=== PATIENT | female | born 1960 | race Caucasian/White ===

== ENCOUNTER 2020-09-25 13:25 | Inpatient (IN) | payer MEDICARE, OTHER ==
[~2020-09-25] VITALS: Ht 160 cm; Wt 65.8 kg
[~2020-09-25 13:25] MED LIST: ALBU2.5V7 IH; BUDE10.2 IH; ESTR0.5T PO; FENO160T4 PO; LANS15TA5 PO; LORA10CA PO; TIOT18CA4 IH
[2020-09-25 14:11] LABS: BASOPHILS # (AUTO) 0.1 K/uL (0.0-8.0); BASOPHILS % (AUTO) 0.8 % (0.0-2.0); EOSINOPHILS % (AUTO) 0.5 % (0.0-7.0); HEMATOCRIT 31.9 % (31.2-41.9); HEMOGLOBIN 10.7 g/dL (10.9-14.3); LYMPHOCYTES # (AUTO) 1.2 K/uL (20.0-40.0); LYMPHOCYTES % (AUTO) 17.6 % (20.5-51.5); MEAN CORPUSCULAR HEMOGLOBIN 30.1 uug (24.7-32.8); MEAN CORPUSCULAR HGB CONC 33 g/dL (32.3-35.6); MEAN CORPUSCULAR VOLUME 90.2 fL (75.5-95.3); MONOCYTES # (AUTO) 0.4 K/uL (2.0-10.0); MONOCYTES % (AUTO) 6.1 % (0.0-11.0); NEUTROPHILS # (AUTO) 5.3 K/uL (1.8-8.9); PLATELET COUNT (AUTO) 509 K/uL (179-408); RED BLOOD CELL COUNT(AUTO) 3.54 MIL/uL (3.63-4.92)
[2020-09-25 14:17] LABS: ETHANOL < 3 MG/DL (0-0)
[2020-09-25 14:21] LABS: CARBON DIOXIDE 29 mmol/L (21-32); CHLORIDE 105 mmol/L (98-107); CREATININE 1.3 mg/dL (0.6-1.3); GLUCOSE 97 mg/dL (74-106); POTASSIUM 3.3 mmol/L (3.5-5.1); UREA NITROGEN, BLOOD 21 mg/dL (7-18)
[2020-09-25 14:27] LABS: ACETAMINOPHEN < 2.0 ug/mL (10-30); ALANINE AMINOTRANSFERASE 23 U/L (14-59); ALKALINE PHOSPHATASE 67 U/L (50-136); ASPARTATE AMINOTRANSFERASE 15 U/L (15-37); TOTAL PROTEIN, SERUM 6.5 g/dL (6.4-8.2)
[2020-09-25] MEDS ORDERED: POTASSIUM CHLORIDE 20 MEQ TAB.PRT.SR PO ONE (15:15)
[2020-09-25 15:17] LABS: BILIRUBIN,DIRECT < 0.1 mg/dL (0.0-0.2); BILIRUBIN,TOTAL 0.1 mg/dL (0.2-1.0)
[2020-09-25] MEDS ORDERED: POTASSIUM CHLORIDE 20 MEQ TAB.PRT.SR ONE (15:21)
[2020-09-25] MEDS ORDERED: ONDANSETRON 4 MG/2 ML VIAL IV PRN (16:45)
[2020-09-25] MEDS ORDERED: ALBUTEROL SULFATE 2.5 MG/3 ML NEBU IH PRN (17:45)
[2020-09-25 17:58] VITALS: BP 116/47
[2020-09-25] MEDS ORDERED: ENOXAPARIN SODIUM 40 MG/0.4 ML DISP.SYRIN SQ ONE (18:00)
[2020-09-25] MEDS ORDERED: AZITHROMYCIN 250 MG TABLET PO ONE (18:00)
[2020-09-25] MEDS ORDERED: lexapro (18:20)
[2020-09-25] MEDS ORDERED: wellbutrin (18:20)
[2020-09-25] MEDS ORDERED: [UNRECOGNIZED DRUG - OTHER] (18:20)
[2020-09-25] MEDS ORDERED: vitamin d3 (18:20)
[2020-09-25] MEDS ORDERED: DOCU-141 PO (18:20)
[2020-09-25] MEDS ORDERED: geodon (18:20)
[2020-09-25] MEDS ORDERED: DEXAMETHASONE SOD PHOSPHATE 4 MG INJ IV SCH (19:00)
[2020-09-25] MEDS ORDERED: LORAZEPAM 1 MG TABLET PO PRN (19:00)
[2020-09-25] MEDS ORDERED: DEXAMETHASONE 4 MG TABLET PO SCH (20:00)
[2020-09-25] MEDS ORDERED: ALBUTEROL SULFATE 8 GM HFA.AER.AD IH PRN (20:00)
[2020-09-25 20:03] VITALS: BP 139/61
[2020-09-25] MEDS: ZIPRASIDONE 20 MG CAPSULE PO SCH (20:20)
[2020-09-25] MEDS: ACETAMINOPHEN 325 MG TABLET PO PRN (20:21)
[2020-09-25] MEDS ORDERED: DEXAMETHASONE SOD PHOSPHATE 10 MG INJ IV SCH (20:45)
[2020-09-25] MEDS: DEXAMETHASONE 4 MG TABLET PO SCH (21:58)
[2020-09-25] MEDS: IPRATROPIUM BROMIDE 12.9 GM INHALER INH SCH (23:30)
[2020-09-26 00:10] VITALS: BP 118/50
[2020-09-26] MEDS: IPRATROPIUM BROMIDE 12.9 GM INHALER INH SCH ×6 (04:10→23:45)
[2020-09-26 04:14] VITALS: BP 123/51
[2020-09-26 06:13] LABS: BASOPHILS % (AUTO) 0.4 % (0.0-2.0); HEMATOCRIT 32.3 % (31.2-41.9); HEMOGLOBIN 10.7 g/dL (10.9-14.3); LYMPHOCYTES # (AUTO) 0.6 K/uL (20.0-40.0); LYMPHOCYTES % (AUTO) 8.7 % (20.5-51.5); MEAN CORPUSCULAR HEMOGLOBIN 29.7 uug (24.7-32.8); MEAN CORPUSCULAR HGB CONC 33 g/dL (32.3-35.6); MEAN CORPUSCULAR VOLUME 89.8 fL (75.5-95.3); MONOCYTES # (AUTO) 0.1 K/uL (2.0-10.0); MONOCYTES % (AUTO) 1.7 % (0.0-11.0); NEUTROPHILS # (AUTO) 5.7 K/uL (1.8-8.9); NEUTROPHILS % (AUTO) 89.2 % (38.5-71.5); PLATELET COUNT (AUTO) 518 K/uL (179-408); WHITE BLOOD COUNT (AUTO) 6.4 K/uL (3.8-11.8)
[2020-09-26 06:41] LABS: BILIRUBIN,TOTAL 0.3 mg/dL (0.2-1.0); CREATININE 1.4 mg/dL (0.6-1.3); POTASSIUM 4.4 mmol/L (3.5-5.1); TOTAL PROTEIN, SERUM 6.8 g/dL (6.4-8.2)
[2020-09-26] MEDS: PANTOPRAZOLE SODIUM 40 MG TABLET.DR PO SCH (08:32)
[2020-09-26] MEDS: LORATADINE 10 MG TABLET PO SCH (08:58)
[2020-09-26] MEDS: ZIPRASIDONE 20 MG CAPSULE PO SCH ×3 (08:59→20:55)
[2020-09-26 09:00] VITALS: BP 106/69
[2020-09-26] MEDS ORDERED: ESTRADIOL 1 MG TABLET PO SCH (09:00)
[2020-09-26] MEDS: DEXAMETHASONE 4 MG TABLET PO SCH (09:02)
[2020-09-26] MEDS ORDERED: FLUTICASONE/SALMETEROL 250/50 INHALER INH SCH (09:30)
[2020-09-26] MEDS: ENOXAPARIN SODIUM 40 MG/0.4 ML DISP.SYRIN SQ SCH ×2 (10:00→10:32)
[2020-09-26 10:44] LABS: *BILIRUBIN,URIN NEGATIVE (NEGATIVE); *CLARITY,URINE SLIGHTLY CLOUDY (CLEAR); *COLOR,URINE YELLOW (YELLOW); *KETONES,URINE NEGATIVE (NEGATIVE); *UROBILINOGEN,URINE 0.2 E.U./dl (NORMAL); LEUKOCYTE ESTERASE ,URINE NEGATIVE (NEGATIVE); NITRITE, URINE NEGATIVE (NEGATIVE); UGLUCOSE NEGATIVE (NEGATIVE)
[2020-09-26 10:49] LABS: *BLOOD, URINE TRACE (NEGATIVE)
[2020-09-26 10:58] LABS: *AMPHETAMINE, URINE NEGATIVE (NEGATIVE); *CANNABINOID, URINE NEGATIVE (NEGATIVE); *COCCAINE, URINE NEGATIVE (NEGATIVE); *OPIATE, URINE NEGATIVE (NEGATIVE); *PHENCYCLIDINE SCREEN,URINE NEGATIVE (NEGATIVE)
[2020-09-26] MEDS: FLUTICASONE/VILANTEROL 1 EACH BLST.W.DEV INH SCH (11:26)
[2020-09-26 11:37] LABS: BACTERIA,URINE FEW /HPF (NONE SEEN); SQUAMOUS EPITHELIAL CELL,UR MODERATE /HPF (NONE SEEN); WBC,URINE 0-3 /HPF (0-3)
[2020-09-26] MEDS ORDERED: ESCI20TA PO (11:42)
[2020-09-26] MEDS ORDERED: LORA-258 PO (11:43)
[2020-09-26] MEDS ORDERED: MONT10TA22 PO (11:50)
[2020-09-26] MEDS ORDERED: BUPR300T52 PO (11:50)
[2020-09-26] MEDS ORDERED: OMEP20TA5 PO (11:50)
[2020-09-26] MEDS ORDERED: LACT10SO PO (11:50)
[2020-09-26] MEDS ORDERED: ERGO500040 PO (11:50)
[2020-09-26 12:00] VITALS: BP 117/61
[2020-09-26] MEDS ORDERED: buPROPion XL 150 MG TAB.SR.24H PO SCH (12:39)
[2020-09-26] MEDS ORDERED: Medication Not On Formulary EA (Bupropion Hcl (Wellbutrin Xl) 300 MG) PO SCH (12:45)
[2020-09-26] MEDS ORDERED: Medication Not On Formulary EA (Escitalopram Oxalate (Lexapro) 20 MG) PO SCH (12:45)
[2020-09-26] MEDS ORDERED: Medication Not On Formulary EA (Omeprazole 20 MG) PO SCH (12:45)
[2020-09-26] MEDS ORDERED: ESCITALOPRAM OXALATE 10 MG TABLET PO ONE (13:00)
[2020-09-26 15:26] VITALS: BP 126/62
[2020-09-26] MEDS: DOCUSATE SODIUM 100 MG CAPSULE PO SCH (16:49)
[2020-09-26] MEDS: LORAZEPAM 0.5 MG TABLET PO SCH (16:49)
[2020-09-26] MEDS: MONTELUKAST SODIUM 10 MG TABLET PO SCH (17:01)
[2020-09-26] MEDS ORDERED: DEXAMETHASONE 4 MG TABLET PO SCH (18:00)
[2020-09-26] MEDS ORDERED: AZITHROMYCIN 250 MG TABLET PO SCH (18:00)
[2020-09-26 20:00] VITALS: BP 114/58
[2020-09-26] MEDS ORDERED: ZIPRASIDONE 20 MG CAPSULE PO SCH (21:00)
[2020-09-27 00:31] VITALS: BP 126/63
[2020-09-27 04:00] VITALS: BP 104/56
[2020-09-27] MEDS: IPRATROPIUM BROMIDE 12.9 GM INHALER INH SCH ×6 (04:01→23:42)
[2020-09-27] MEDS: PANTOPRAZOLE SODIUM 40 MG TABLET.DR PO SCH (06:32)
[2020-09-27 08:08] LABS: HEMATOCRIT 30.6 % (31.2-41.9); HEMOGLOBIN 10.4 g/dL (10.9-14.3); LYMPHOCYTES # (AUTO) 1.6 K/uL (20.0-40.0); LYMPHOCYTES % (AUTO) 31.4 % (20.5-51.5); MEAN CORPUSCULAR HEMOGLOBIN 30.4 uug (24.7-32.8); MEAN CORPUSCULAR HGB CONC 34 g/dL (32.3-35.6); MONOCYTES # (AUTO) 0.9 K/uL (2.0-10.0); MONOCYTES % (AUTO) 17.1 % (0.0-11.0); NEUTROPHILS # (AUTO) 2.6 K/uL (1.8-8.9); NEUTROPHILS % (AUTO) 51.5 % (38.5-71.5); PLATELET COUNT (AUTO) 442 K/uL (179-408)
[2020-09-27] MEDS: FLUTICASONE/VILANTEROL 1 EACH BLST.W.DEV INH SCH (08:10)
[2020-09-27] MEDS: LORAZEPAM 0.5 MG TABLET PO SCH ×2 (08:11→16:04)
[2020-09-27] MEDS: ZIPRASIDONE 20 MG CAPSULE PO SCH ×3 (08:11→19:51)
[2020-09-27] MEDS: DOCUSATE SODIUM 100 MG CAPSULE PO SCH ×2 (08:12→16:04)
[2020-09-27] MEDS: LORATADINE 10 MG TABLET PO SCH (08:12)
[2020-09-27] MEDS: DEXAMETHASONE 4 MG TABLET PO SCH (08:13)
[2020-09-27] MEDS: ESTRADIOL 1 MG TABLET PO SCH (08:13)
[2020-09-27] MEDS: ENOXAPARIN SODIUM 40 MG/0.4 ML DISP.SYRIN SQ SCH (08:35)
[2020-09-27 08:47] VITALS: BP 130/79
[2020-09-27] MEDS: ESCITALOPRAM OXALATE 10 MG TABLET PO SCH (10:59)
[2020-09-27 11:16] LABS: ALANINE AMINOTRANSFERASE 30 U/L (14-59); ALKALINE PHOSPHATASE 68 U/L (50-136); ASPARTATE AMINOTRANSFERASE 18 U/L (15-37); CARBON DIOXIDE 24 mmol/L (21-32); CHLORIDE 105 mmol/L (98-107); CREATININE 1.3 mg/dL (0.6-1.3); FERRITIN 13 ng/mL (8-252); GLUCOSE 96 mg/dL (74-106); MAGNESIUM 2.5 mg/dL (1.8-2.4); PHOSPHOROUS 3.9 mg/dL (2.5-4.9); POTASSIUM 3.9 mmol/L (3.5-5.1); TOTAL PROTEIN, SERUM 6.5 g/dL (6.4-8.2); UREA NITROGEN, BLOOD 23 mg/dL (7-18)
[2020-09-27 11:24] LABS: BILIRUBIN,TOTAL < 0.1 mg/dL (0.2-1.0)
[2020-09-27 11:56] LABS: IRON, SERUM 18 ug/dL (50-175)
[2020-09-27 16:22] VITALS: BP 119/61
[2020-09-27] MEDS: MONTELUKAST SODIUM 10 MG TABLET PO SCH (17:03)
[2020-09-27 18:17] LABS: LYMPHOCYTES % (MANUAL) 26 % (20-40); MONOCYTES % (MANUAL) 11 % (2-10); NEUTROPHILS % (MANUAL) 63 % (42-75)
[2020-09-27 20:00] VITALS: BP 136/70
[2020-09-27] MEDS: ACETAMINOPHEN 325 MG TABLET PO PRN (20:21)
[2020-09-28] VITALS: BP 117/67
[2020-09-28] MEDS: IPRATROPIUM BROMIDE 12.9 GM INHALER INH SCH ×6 (04:06→23:52)
[2020-09-28 04:12] VITALS: BP 147/71
[2020-09-28] MEDS: ENOXAPARIN SODIUM 40 MG/0.4 ML DISP.SYRIN SQ SCH (08:01)
[2020-09-28] MEDS: LORAZEPAM 0.5 MG TABLET PO SCH ×2 (08:02→17:01)
[2020-09-28] MEDS: PANTOPRAZOLE SODIUM 40 MG TABLET.DR PO SCH (08:02)
[2020-09-28] MEDS: LORATADINE 10 MG TABLET PO SCH (08:02)
[2020-09-28] MEDS: ZIPRASIDONE 20 MG CAPSULE PO SCH ×3 (08:02→20:30)
[2020-09-28] MEDS: ESCITALOPRAM OXALATE 10 MG TABLET PO SCH (08:03)
[2020-09-28] MEDS: ESTRADIOL 1 MG TABLET PO SCH (08:03)
[2020-09-28] MEDS: DOCUSATE SODIUM 100 MG CAPSULE PO SCH ×2 (08:03→17:01)
[2020-09-28] MEDS: DEXAMETHASONE 4 MG TABLET PO SCH (08:03)
[2020-09-28] MEDS: FLUTICASONE/VILANTEROL 1 EACH BLST.W.DEV INH SCH (08:04)
[2020-09-28 11:52] VITALS: BP 124/64
[2020-09-28 15:46] VITALS: BP 123/54
[2020-09-28] MEDS: MONTELUKAST SODIUM 10 MG TABLET PO SCH (17:01)
[2020-09-28 20:30] VITALS: BP 121/56
[2020-09-29 00:50] VITALS: BP 102/62
[2020-09-29] MEDS: IPRATROPIUM BROMIDE 12.9 GM INHALER INH SCH ×5 (03:32→20:42)
[2020-09-29 04:00] VITALS: BP 120/60
[2020-09-29] MEDS: PANTOPRAZOLE SODIUM 40 MG TABLET.DR PO SCH (06:36)
[2020-09-29 07:06] LABS: BASOPHILS % (AUTO) 0.3 % (0.0-2.0); HEMATOCRIT 32.5 % (31.2-41.9); HEMOGLOBIN 10.8 g/dL (10.9-14.3); LYMPHOCYTES % (AUTO) 27.7 % (20.5-51.5); MEAN CORPUSCULAR HEMOGLOBIN 29.6 uug (24.7-32.8); MEAN CORPUSCULAR HGB CONC 33 g/dL (32.3-35.6); MEAN CORPUSCULAR VOLUME 89.4 fL (75.5-95.3); MONOCYTES # (AUTO) 0.5 K/uL (2.0-10.0); MONOCYTES % (AUTO) 6.5 % (0.0-11.0); NEUTROPHILS # (AUTO) 4.7 K/uL (1.8-8.9); NEUTROPHILS % (AUTO) 65.5 % (38.5-71.5); PLATELET COUNT (AUTO) 397 K/uL (179-408); RED BLOOD CELL COUNT(AUTO) 3.63 MIL/uL (3.63-4.92); WHITE BLOOD COUNT (AUTO) 7.1 K/uL (3.8-11.8)
[2020-09-29 07:32] LABS: ALANINE AMINOTRANSFERASE 27 U/L (14-59); ALKALINE PHOSPHATASE 67 U/L (50-136); ASPARTATE AMINOTRANSFERASE 14 U/L (15-37); BILIRUBIN,TOTAL < 0.1 mg/dL (0.2-1.0); CARBON DIOXIDE 25 mmol/L (21-32); CHLORIDE 104 mmol/L (98-107); CREATININE 1.3 mg/dL (0.6-1.3); GLUCOSE 77 mg/dL (74-106); MAGNESIUM 2.5 mg/dL (1.8-2.4); PHOSPHOROUS 4.1 mg/dL (2.5-4.9); POTASSIUM 3.8 mmol/L (3.5-5.1); TOTAL PROTEIN, SERUM 6.6 g/dL (6.4-8.2); UREA NITROGEN, BLOOD 24 mg/dL (7-18)
[2020-09-29] MEDS: ESTRADIOL 1 MG TABLET PO SCH (08:17)
[2020-09-29] MEDS: LORAZEPAM 0.5 MG TABLET PO SCH ×2 (08:17→16:50)
[2020-09-29] MEDS: FERROUS GLUCONATE 324 MG TABLET PO SCH (08:17)
[2020-09-29] MEDS: DOCUSATE SODIUM 100 MG CAPSULE PO SCH ×2 (08:18→16:49)
[2020-09-29] MEDS: ESCITALOPRAM OXALATE 10 MG TABLET PO SCH (08:18)
[2020-09-29] MEDS: DEXAMETHASONE 4 MG TABLET PO SCH (08:18)
[2020-09-29] MEDS: ZIPRASIDONE 20 MG CAPSULE PO SCH ×3 (08:18→20:36)
[2020-09-29] MEDS: LORATADINE 10 MG TABLET PO SCH (08:18)
[2020-09-29] MEDS: ENOXAPARIN SODIUM 40 MG/0.4 ML DISP.SYRIN SQ SCH (08:19)
[2020-09-29] MEDS: FLUTICASONE/VILANTEROL 1 EACH BLST.W.DEV INH SCH (08:22)
[2020-09-29 11:33] VITALS: BP 129/61
[2020-09-29 16:00] VITALS: BP 127/67
[2020-09-29] MEDS: MONTELUKAST SODIUM 10 MG TABLET PO SCH (16:49)
[2020-09-29 20:28] VITALS: BP 125/60
[2020-09-30] VITALS: BP 106/57
[2020-09-30] MEDS: IPRATROPIUM BROMIDE 12.9 GM INHALER INH SCH ×6 (01:19→18:49)
[2020-09-30 04:00] VITALS: BP 109/70
[2020-09-30] MEDS: PANTOPRAZOLE SODIUM 40 MG TABLET.DR PO SCH (06:29)
[2020-09-30 06:34] LABS: ABG BASE EXCESS -1.3 mmol/L; ABG HCO3 23.1 mmol/L; ABG PCO2 37.7 mmHg (35.0-45.0); ABG PH 7.406 (7.350-7.450); ABG PO2 55.4 mmHg (75.0-100.0); ABG SITE RIGHT RADIAL; ABG TOTAL HEMOGLOBIN 11.5 G/dL (12.0-16.0); COHb 0.1 % (0.5-1.5); MetHb 0.3 % (0.0-1.5); O2Hb 88.2 % (94.0-97.0); VENT MODE Nasal Cannula
[2020-09-30 07:58] LABS: BASOPHILS % (AUTO) 0.2 % (0.0-2.0); HEMOGLOBIN 11.3 g/dL (10.9-14.3); LYMPHOCYTES # (AUTO) 1.4 K/uL (20.0-40.0); LYMPHOCYTES % (AUTO) 22.8 % (20.5-51.5); MEAN CORPUSCULAR HEMOGLOBIN 29.5 uug (24.7-32.8); MEAN CORPUSCULAR HGB CONC 33 g/dL (32.3-35.6); MONOCYTES # (AUTO) 0.5 K/uL (2.0-10.0); MONOCYTES % (AUTO) 8.6 % (0.0-11.0); NEUTROPHILS # (AUTO) 4.2 K/uL (1.8-8.9); NEUTROPHILS % (AUTO) 68.4 % (38.5-71.5); PLATELET COUNT (AUTO) 407 K/uL (179-408); RED BLOOD CELL COUNT(AUTO) 3.82 MIL/uL (3.63-4.92); WHITE BLOOD COUNT (AUTO) 6.2 K/uL (3.8-11.8)
[2020-09-30 08:24] LABS: CREATININE 1.2 mg/dL (0.6-1.3); MAGNESIUM 2.5 mg/dL (1.8-2.4); PHOSPHOROUS 3.9 mg/dL (2.5-4.9); POTASSIUM 3.8 mmol/L (3.5-5.1)
[2020-09-30] MEDS: LORAZEPAM 0.5 MG TABLET PO SCH ×2 (09:13→16:13)
[2020-09-30] MEDS: ESCITALOPRAM OXALATE 10 MG TABLET PO SCH (09:13)
[2020-09-30] MEDS: DOCUSATE SODIUM 100 MG CAPSULE PO SCH ×2 (09:13→16:13)
[2020-09-30] MEDS: LORATADINE 10 MG TABLET PO SCH (09:13)
[2020-09-30] MEDS: DEXAMETHASONE 4 MG TABLET PO SCH (09:16)
[2020-09-30] MEDS: ESTRADIOL 1 MG TABLET PO SCH (09:16)
[2020-09-30] MEDS: FERROUS GLUCONATE 324 MG TABLET PO SCH (09:16)
[2020-09-30] MEDS: ENOXAPARIN SODIUM 40 MG/0.4 ML DISP.SYRIN SQ SCH (09:18)
[2020-09-30] MEDS: FLUTICASONE/VILANTEROL 1 EACH BLST.W.DEV INH SCH (09:25)
[2020-09-30] MEDS: ZIPRASIDONE 20 MG CAPSULE PO SCH ×3 (09:37→20:49)
[2020-09-30 12:00] VITALS: BP 125/64
[2020-09-30 16:00] VITALS: BP 133/67
[2020-09-30] MEDS ORDERED: REMDESIVIR (INVESTIGATIONAL) 200 MG in IV NORMAL SALINE 210 ML IV ONE (16:00)
[2020-09-30 16:02] LABS: ALANINE AMINOTRANSFERASE 27 U/L (14-59); ALKALINE PHOSPHATASE 68 U/L (50-136); ASPARTATE AMINOTRANSFERASE 16 U/L (15-37); BILIRUBIN,DIRECT < 0.1 mg/dL (0.0-0.2); BILIRUBIN,TOTAL 0.1 mg/dL (0.2-1.0)
[2020-09-30] MEDS: MONTELUKAST SODIUM 10 MG TABLET PO SCH (17:45)
[2020-09-30 20:32] VITALS: BP 127/70
[2020-10-01] MEDS: IPRATROPIUM BROMIDE 12.9 GM INHALER INH SCH ×6 (00:13→23:30)
[2020-10-01 04:52] VITALS: BP 122/64
[2020-10-01] MEDS: PANTOPRAZOLE SODIUM 40 MG TABLET.DR PO SCH (06:43)
[2020-10-01 07:54] LABS: BASOPHILS % (AUTO) 0.1 % (0.0-2.0); HEMATOCRIT 33.8 % (31.2-41.9); HEMOGLOBIN 10.9 g/dL (10.9-14.3); LYMPHOCYTES # (AUTO) 1.6 K/uL (20.0-40.0); LYMPHOCYTES % (AUTO) 18.8 % (20.5-51.5); MEAN CORPUSCULAR HEMOGLOBIN 29.8 uug (24.7-32.8); MEAN CORPUSCULAR HGB CONC 32 g/dL (32.3-35.6); MEAN CORPUSCULAR VOLUME 92.5 fL (75.5-95.3); MONOCYTES # (AUTO) 0.6 K/uL (2.0-10.0); MONOCYTES % (AUTO) 7.1 % (0.0-11.0); NEUTROPHILS # (AUTO) 6.5 K/uL (1.8-8.9); PLATELET COUNT (AUTO) 358 K/uL (179-408); RED BLOOD CELL COUNT(AUTO) 3.65 MIL/uL (3.63-4.92); WHITE BLOOD COUNT (AUTO) 8.8 K/uL (3.8-11.8)
[2020-10-01] MEDS: DOCUSATE SODIUM 100 MG CAPSULE PO SCH ×2 (08:41→17:03)
[2020-10-01] MEDS: ESCITALOPRAM OXALATE 10 MG TABLET PO SCH (08:42)
[2020-10-01] MEDS: LORAZEPAM 0.5 MG TABLET PO SCH ×2 (08:42→17:03)
[2020-10-01] MEDS: LORATADINE 10 MG TABLET PO SCH (08:42)
[2020-10-01] MEDS: FERROUS GLUCONATE 324 MG TABLET PO SCH (08:43)
[2020-10-01] MEDS: ESTRADIOL 1 MG TABLET PO SCH (08:44)
[2020-10-01] MEDS: FLUTICASONE/VILANTEROL 1 EACH BLST.W.DEV INH SCH (08:44)
[2020-10-01] MEDS: DEXAMETHASONE 4 MG TABLET PO SCH (08:44)
[2020-10-01] MEDS: ENOXAPARIN SODIUM 40 MG/0.4 ML DISP.SYRIN SQ SCH (08:47)
[2020-10-01] MEDS: ZIPRASIDONE 20 MG CAPSULE PO SCH ×3 (09:22→20:35)
[2020-10-01] MEDS ORDERED: LORAZEPAM 0.5 MG TABLET PO PRN (10:15)
[2020-10-01 10:55] LABS: BILIRUBIN,DIRECT 0.1 mg/dL (0.0-0.2); BILIRUBIN,TOTAL 0.2 mg/dL (0.2-1.0); CREATININE 1.1 mg/dL (0.6-1.3); MAGNESIUM 2.7 mg/dL (1.8-2.4); PHOSPHOROUS 3.4 mg/dL (2.5-4.9); POTASSIUM 4.2 mmol/L (3.5-5.1); TOTAL PROTEIN, SERUM 6.5 g/dL (6.4-8.2)
[2020-10-01 12:01] VITALS: BP 113/59
[2020-10-01 15:54] VITALS: BP 116/54
[2020-10-01] MEDS ORDERED: REMDESIVIR (INVESTIGATIONAL) 100 MG in IV NORMAL SALINE 230 ML IV SCH (16:00)
[2020-10-01] MEDS: MONTELUKAST SODIUM 10 MG TABLET PO SCH (17:03)
[2020-10-01 20:16] VITALS: BP 106/47
[2020-10-02] MEDS: IPRATROPIUM BROMIDE 12.9 GM INHALER INH SCH ×6 (03:30→22:30)
[2020-10-02 04:14] VITALS: BP 118/50
[2020-10-02] MEDS: PANTOPRAZOLE SODIUM 40 MG TABLET.DR PO SCH (06:33)
[2020-10-02 09:15] VITALS: BP 121/67
[2020-10-02] MEDS: ESCITALOPRAM OXALATE 10 MG TABLET PO SCH (09:17)
[2020-10-02] MEDS: DOCUSATE SODIUM 100 MG CAPSULE PO SCH ×2 (09:17→16:57)
[2020-10-02] MEDS: LORAZEPAM 0.5 MG TABLET PO SCH ×2 (09:17→16:57)
[2020-10-02] MEDS: FERROUS GLUCONATE 324 MG TABLET PO SCH (09:18)
[2020-10-02] MEDS: ZIPRASIDONE 20 MG CAPSULE PO SCH ×3 (09:18→21:05)
[2020-10-02] MEDS: ESTRADIOL 1 MG TABLET PO SCH (09:18)
[2020-10-02] MEDS: DEXAMETHASONE 4 MG TABLET PO SCH (09:19)
[2020-10-02] MEDS: LORATADINE 10 MG TABLET PO SCH (09:21)
[2020-10-02] MEDS: ENOXAPARIN SODIUM 40 MG/0.4 ML DISP.SYRIN SQ SCH (09:23)
[2020-10-02] MEDS: FLUTICASONE/VILANTEROL 1 EACH BLST.W.DEV INH SCH (09:31)
[2020-10-02 15:44] LABS: BASOPHILS % (AUTO) 0.1 % (0.0-2.0); HEMATOCRIT 31.9 % (31.2-41.9); HEMOGLOBIN 10.5 g/dL (10.9-14.3); LYMPHOCYTES # (AUTO) 0.8 K/uL (20.0-40.0); LYMPHOCYTES % (AUTO) 8.7 % (20.5-51.5); MEAN CORPUSCULAR HEMOGLOBIN 29.5 uug (24.7-32.8); MEAN CORPUSCULAR HGB CONC 33 g/dL (32.3-35.6); MEAN CORPUSCULAR VOLUME 89.1 fL (75.5-95.3); MONOCYTES # (AUTO) 0.4 K/uL (2.0-10.0); MONOCYTES % (AUTO) 3.9 % (0.0-11.0); NEUTROPHILS % (AUTO) 87.3 % (38.5-71.5); PLATELET COUNT (AUTO) 384 K/uL (179-408); RED BLOOD CELL COUNT(AUTO) 3.58 MIL/uL (3.63-4.92); WHITE BLOOD COUNT (AUTO) 9.2 K/uL (3.8-11.8)
[2020-10-02 15:58] LABS: ALANINE AMINOTRANSFERASE 26 U/L (14-59); ALKALINE PHOSPHATASE 68 U/L (50-136); ASPARTATE AMINOTRANSFERASE 14 U/L (15-37); BILIRUBIN,DIRECT < 0.1 mg/dL (0.0-0.2); BILIRUBIN,TOTAL < 0.1 mg/dL (0.2-1.0); CARBON DIOXIDE 25 mmol/L (21-32); CHLORIDE 102 mmol/L (98-107); CREATININE 1.1 mg/dL (0.6-1.3); GLUCOSE 152 mg/dL (74-106); MAGNESIUM 2.1 mg/dL (1.8-2.4); PHOSPHOROUS 2.2 mg/dL (2.5-4.9); POTASSIUM 4.3 mmol/L (3.5-5.1); TOTAL PROTEIN, SERUM 6.1 g/dL (6.4-8.2); UREA NITROGEN, BLOOD 22 mg/dL (7-18); URIC ACID 3.8 mg/dL (2.6-6.0)
[2020-10-02 16:00] VITALS: BP 129/66
[2020-10-02 16:21] LABS: THYROID STIMULATING HORMONE 0.531 mIU/mL (0.358-3.740)
[2020-10-02] MEDS: MONTELUKAST SODIUM 10 MG TABLET PO SCH (16:57)
[2020-10-02] MEDS: REMDESIVIR (CHARGED) 100 MG in IV NORMAL SALINE 230 ML IV SCH (17:04)
[2020-10-02 20:18] VITALS: BP 116/65
[2020-10-03] MEDS: IPRATROPIUM BROMIDE 12.9 GM INHALER INH SCH ×5 (02:30→21:15)
[2020-10-03 04:26] VITALS: BP 125/72
[2020-10-03] MEDS: PANTOPRAZOLE SODIUM 40 MG TABLET.DR PO SCH (06:35)
[2020-10-03 08:00] VITALS: BP 128/67
[2020-10-03] MEDS: ZIPRASIDONE 20 MG CAPSULE PO SCH ×3 (08:12→20:50)
[2020-10-03] MEDS: LORAZEPAM 0.5 MG TABLET PO SCH ×2 (08:13→16:54)
[2020-10-03] MEDS: ESCITALOPRAM OXALATE 10 MG TABLET PO SCH (08:13)
[2020-10-03] MEDS: DEXAMETHASONE 4 MG TABLET PO SCH (08:13)
[2020-10-03] MEDS: FERROUS GLUCONATE 324 MG TABLET PO SCH (08:13)
[2020-10-03] MEDS: LORATADINE 10 MG TABLET PO SCH (08:13)
[2020-10-03] MEDS: DOCUSATE SODIUM 100 MG CAPSULE PO SCH ×2 (08:13→16:54)
[2020-10-03] MEDS: ESTRADIOL 1 MG TABLET PO SCH (08:14)
[2020-10-03] MEDS: ENOXAPARIN SODIUM 40 MG/0.4 ML DISP.SYRIN SQ SCH (08:16)
[2020-10-03] MEDS: FLUTICASONE/VILANTEROL 1 EACH BLST.W.DEV INH SCH (08:37)
[2020-10-03 14:55] LABS: BILIRUBIN,DIRECT 0.1 mg/dL (0.0-0.2); CREATININE 1.2 mg/dL (0.6-1.3); POTASSIUM 4.1 mmol/L (3.5-5.1); TOTAL PROTEIN, SERUM 6.4 g/dL (6.4-8.2)
[2020-10-03 14:55] LABS: BASOPHILS % (AUTO) 0.3 % (0.0-2.0); HEMATOCRIT 34.2 % (31.2-41.9); HEMOGLOBIN 10.9 g/dL (10.9-14.3); LYMPHOCYTES # (AUTO) 0.8 K/uL (20.0-40.0); LYMPHOCYTES % (AUTO) 5.3 % (20.5-51.5); MEAN CORPUSCULAR HEMOGLOBIN 28.7 uug (24.7-32.8); MEAN CORPUSCULAR HGB CONC 32 g/dL (32.3-35.6); MEAN CORPUSCULAR VOLUME 89.8 fL (75.5-95.3); MONOCYTES # (AUTO) 0.5 K/uL (2.0-10.0); MONOCYTES % (AUTO) 3.5 % (0.0-11.0); NEUTROPHILS # (AUTO) 13.5 K/uL (1.8-8.9); NEUTROPHILS % (AUTO) 90.9 % (38.5-71.5); PLATELET COUNT (AUTO) 478 K/uL (179-408); RED BLOOD CELL COUNT(AUTO) 3.81 MIL/uL (3.63-4.92); WHITE BLOOD COUNT (AUTO) 14.9 K/uL (3.8-11.8)
[2020-10-03 15:06] LABS: BILIRUBIN,TOTAL 0.1 mg/dL (0.2-1.0)
[2020-10-03 16:42] VITALS: BP 144/74
[2020-10-03] MEDS: REMDESIVIR (CHARGED) 100 MG in IV NORMAL SALINE 230 ML IV SCH (16:54)
[2020-10-03] MEDS: MONTELUKAST SODIUM 10 MG TABLET PO SCH (17:31)
[2020-10-03 19:30] VITALS: BP 127/68
[2020-10-04] VITALS: BP 123/56
[2020-10-04] MEDS: IPRATROPIUM BROMIDE 12.9 GM INHALER INH SCH ×5 (00:29→15:38)
[2020-10-04 05:00] VITALS: BP 131/68
[2020-10-04] MEDS: PANTOPRAZOLE SODIUM 40 MG TABLET.DR PO SCH (06:32)
[2020-10-04 06:58] LABS: BASOPHILS # (AUTO) 0.1 K/uL (0.0-8.0); BASOPHILS % (AUTO) 0.6 % (0.0-2.0); EOSINOPHILS % (AUTO) 0.1 % (0.0-7.0); HEMATOCRIT 32.7 % (31.2-41.9); HEMOGLOBIN 10.7 g/dL (10.9-14.3); LYMPHOCYTES # (AUTO) 2.4 K/uL (20.0-40.0); LYMPHOCYTES % (AUTO) 22.8 % (20.5-51.5); MEAN CORPUSCULAR HEMOGLOBIN 29.6 uug (24.7-32.8); MEAN CORPUSCULAR HGB CONC 33 g/dL (32.3-35.6); MEAN CORPUSCULAR VOLUME 90.2 fL (75.5-95.3); MONOCYTES # (AUTO) 0.8 K/uL (2.0-10.0); MONOCYTES % (AUTO) 8.1 % (0.0-11.0); NEUTROPHILS # (AUTO) 7.1 K/uL (1.8-8.9); NEUTROPHILS % (AUTO) 68.4 % (38.5-71.5); PLATELET COUNT (AUTO) 397 K/uL (179-408); RED BLOOD CELL COUNT(AUTO) 3.62 MIL/uL (3.63-4.92); WHITE BLOOD COUNT (AUTO) 10.4 K/uL (3.8-11.8)
[2020-10-04 07:37] LABS: ALANINE AMINOTRANSFERASE 19 U/L (14-59); ALKALINE PHOSPHATASE 61 U/L (50-136); ASPARTATE AMINOTRANSFERASE 15 U/L (15-37); BILIRUBIN,DIRECT < 0.1 mg/dL (0.0-0.2); BILIRUBIN,TOTAL 0.1 mg/dL (0.2-1.0); CARBON DIOXIDE 26 mmol/L (21-32); CHLORIDE 104 mmol/L (98-107); FERRITIN 36 ng/mL (8-252); GLUCOSE 80 mg/dL (74-106); LACTATE DEHYDROGENASE 231 U/L (81-234); MAGNESIUM 2.3 mg/dL (1.8-2.4); PHOSPHOROUS 3.7 mg/dL (2.5-4.9); POTASSIUM 4.2 mmol/L (3.5-5.1); UREA NITROGEN, BLOOD 26 mg/dL (7-18)
[2020-10-04] MEDS: ESTRADIOL 1 MG TABLET PO SCH (08:39)
[2020-10-04] MEDS: DOCUSATE SODIUM 100 MG CAPSULE PO SCH ×2 (08:39→16:42)
[2020-10-04] MEDS: ZIPRASIDONE 20 MG CAPSULE PO SCH ×2 (08:39→16:39)
[2020-10-04] MEDS: LORATADINE 10 MG TABLET PO SCH (08:39)
[2020-10-04] MEDS: LORAZEPAM 0.5 MG TABLET PO SCH ×2 (08:40→16:39)
[2020-10-04] MEDS: DEXAMETHASONE 4 MG TABLET PO SCH (08:40)
[2020-10-04] MEDS: ESCITALOPRAM OXALATE 10 MG TABLET PO SCH (08:46)
[2020-10-04] MEDS: ENOXAPARIN SODIUM 40 MG/0.4 ML DISP.SYRIN SQ SCH (09:00)
[2020-10-04] MEDS ORDERED: FLUTICASONE/VILANTEROL 1 EACH BLST.W.DEV INH SCH (09:00)
[2020-10-04] MEDS: FLUTICASONE/VILANTEROL 1 EACH BLST.W.DEV INH SCH (09:17)
[2020-10-04] MEDS: FERROUS GLUCONATE 324 MG TABLET PO SCH (10:38)
[2020-10-04 12:00] VITALS: BP 122/59
[2020-10-04] MEDS ORDERED: FLUT1BLS INH (15:34)
[2020-10-04] MEDS ORDERED: FERR324T PO (15:34)
[2020-10-04] MEDS ORDERED: METH4TAB21 PO (15:34)
[2020-10-04] MEDS ORDERED: PANT40TA2 PO (15:34)
[2020-10-04] MEDS ORDERED: ALBU8HFA4 IH (15:34)
[2020-10-04] MEDS ORDERED: ACET325T53 PO (15:34)
[2020-10-04] MEDS ORDERED: ZIPR20CA2 PO ×2 (15:34)
[2020-10-04] MEDS: REMDESIVIR (CHARGED) 100 MG in IV NORMAL SALINE 230 ML IV SCH (16:39)
[2020-10-04] MEDS: MONTELUKAST SODIUM 10 MG TABLET PO SCH (18:26)
[2020-10-05] MEDS ORDERED: predniSONE 20 MG TABLET PO SCH (08:00)
== END 2020-10-04 19:00 | DRG 177 ==
LOC: ER 13:30 → MEDSURG3 16:51 → TELE3 18:01 → MEDSURG3 09-30 07:55
PROVIDERS: ADMIT Internal Medicine; ATTEND Internal Medicine
PROC: XW033E5 Introduction of Remdesivir Anti-infective into Peripheral Vein, Percutaneous Approach, New Technology Group 5 (ICD-10-PCS; principal; 2020-09-30)
DX: U07.1 COVID-19 (principal); N17.0 Acute kidney failure with tubular necrosis; E43 Unspecified severe protein-calorie malnutrition; J96.01 Acute respiratory failure with hypoxia; J44.1 Chronic obstructive pulmonary disease with (acute) exacerbation; F31.9 Bipolar disorder, unspecified; E87.6 Hypokalemia; Z88.0 Allergy status to penicillin; Z88.2 Allergy status to sulfonamides; D63.8 Anemia in other chronic diseases classified elsewhere; Z87.891 Personal history of nicotine dependence; D50.9 Iron deficiency anemia, unspecified; F43.10 Post-traumatic stress disorder, unspecified; E88.09 Other disorders of plasma-protein metabolism, not elsewhere classified; Z68.25 Body mass index [BMI] 25.0-25.9, adult; N18.9 Chronic kidney disease, unspecified; D47.3 Essential (hemorrhagic) thrombocythemia; D63.1 Anemia in chronic kidney disease
CPT/HCPCS: 36415; 36600; 70030-TC; 71045; 82533; 82785; 83550; 83615; 83735; 83970; 84100; 84443; 84550; 85025; 85610; 85730; 86140; 93005; 94640; A4663; G0378; G0480; J1100; J1650; J2405; J3535; J7040; J7050; J8540; Q0144; U0003

== ENCOUNTER 2021-06-02 22:06 | Inpatient (IN) | payer MEDICARE, OTHER ==
[~2021-06-02] VITALS: Ht 152.4 cm; Wt 77.6 kg
[~2021-06-02 22:06] MED LIST changes: +ACET325T53 PO; -ALBU2.5V7 IH; +ALBU8HFA4 IH; -BUDE10.2 IH; +BUPR300T52 PO; +DOCU-141 PO; +ERGO500040 PO; +ESCI20TA PO; -FENO160T4 PO; +FERR324T PO; +FLUT1BLS INH; -LANS15TA5 PO; +LORA-258 PO; +METH4TAB21 PO; +MONT10TA22 PO; +OMEP20TA5 PO; +PANT40TA2 PO; -TIOT18CA4 IH; +ZIPR20CA2 PO
--- NOTE | 2021-06-02 23:55 | NUR ---
ADMISSION NOTE: ADMITTED EARLIER A 64 YEARS OLD FEMALE TO [facility] ON A VOLUNTARY HOLD. PATIENT WAS DISCHARGED EARLIER FROM [facility] TO [facility], BUT WHEN THE AMBULANCE GOT THERE SHE REFUSED TO GET OUT OF THE AMBULANCE, SHE STATED "THIS IS A TERRIBLE AREA. IT IS ALL MEN". SHE STATED THAT SHE CAN NOT STAY THERE. THE PARAMEDIANS THEN DECIDED TO GO BACK WITH HER TO [facility]. SHE WAS THEN ADMITTED TO [facility]. UPON ADMISSION, PATIENT NOTED IRRITABLE. SHE REQUIRED REDIRECTION AND REASSURANCE THAT THIS IS A SAVE PLACE. PATIENT REFUSED TO SIGN ADMISSION PAPERS. PATIENT WAS ADVISED OF HER VOLUNTARY HOLD; HOWEVER, SHE QUESTIONED WHY SHE WAS IN A LOCKED UNIT. PATIENT REQUIRED MULTIPLE REDIRECTION AND REASSURANCE. DR ROCHE WAS NOTIFY OF HER ADMISSION. MEDICATION WERE RECONCILED. WILL CONTINUE WITH Q 15 MIN CHECKS.
[2021-06-03 01:40] VITALS: BP 135/57
[2021-06-03] MEDS ORDERED: MAG HYDROX/AL HYDROX/SIMETH 30 ML LIQUID UDC PO PRN (02:00)
[2021-06-03] MEDS ORDERED: MAGNESIUM HYDROXIDE 30 ML LIQUID UDC PO PRN (02:00)
[2021-06-03] MEDS ORDERED: ACETAMINOPHEN 325 MG TABLET PO PRN ×2 (02:00→12:00)
[2021-06-03] MEDS ORDERED: TEMAZEPAM 7.5 MG CAPSULE PO PRN (02:00)
[2021-06-03 07:30] VITALS: BP 114/56
--- NOTE | 2021-06-03 09:24 | NUR ---
SW Family Contact: This SW attempted to contact pt's sister Isabella ([phone]) and was unable to leave a voicemail.
--- NOTE | 2021-06-03 09:24 | NUR ---
SW Initial Discharge Plan: Pt is currently homeless. She was accepted at [facility], however, pt did not want to go there. Pt stated she would want this SW to find placement and would want [facility]. This SW contacted patient's sister Jj ([phone]) and was unable to leave a voicemail. SW will coordinate with the doctor and pt to find placement.
[2021-06-03] MEDS: LORAZEPAM 1 MG TABLET PO PRN ×2 (11:03→21:31)
[2021-06-03] MEDS ORDERED: ALBUTEROL SULFATE 8 GM HFA.AER.AD IH PRN (12:00)
[2021-06-03] MEDS: ALBUTEROL SULFATE 2.5 MG/3 ML NEBU NEB PRN ×2 (14:49→21:24)
[2021-06-03] MEDS: IPRATROPIUM BROMIDE 0.5 MG/2.5 ML NEBU NEB PRN ×2 (14:49→21:24)
[2021-06-03 16:03] VITALS: BP 128/60
[2021-06-03] MEDS: DOCUSATE SODIUM 100 MG CAPSULE PO SCH (17:00)
[2021-06-03] MEDS: MONTELUKAST SODIUM 10 MG TABLET PO SCH (17:36)
[2021-06-03 20:08] VITALS: BP 131/68
[2021-06-03] MEDS ORDERED: ATORVASTATIN 20 MG TABLET PO SCH (21:00)
[2021-06-04] MEDS: IPRATROPIUM BROMIDE 0.5 MG/2.5 ML NEBU NEB PRN ×3 (02:33→20:18)
[2021-06-04] MEDS: ALBUTEROL SULFATE 2.5 MG/3 ML NEBU NEB PRN ×3 (02:34→20:17)
[2021-06-04] MEDS: LORAZEPAM 1 MG TABLET PO PRN ×3 (04:59→16:05)
--- NOTE | 2021-06-04 07:20 | NUR ---
Report obtained from night nurse Sara and this nurse assumed care of patient. No c/o pain or discomfort. Patient in bed and resting.
[2021-06-04 07:30] VITALS: BP 132/69
[2021-06-04] MEDS: DOCUSATE SODIUM 100 MG CAPSULE PO SCH ×2 (09:00→16:02)
[2021-06-04] MEDS ORDERED: ZIPRASIDONE 20 MG CAPSULE PO SCH ×2 (09:00→21:00)
[2021-06-04] MEDS: PANTOPRAZOLE SODIUM 40 MG TABLET.DR PO SCH (09:13)
[2021-06-04] MEDS: ZIPRASIDONE 20 MG CAPSULE PO SCH (09:14)
[2021-06-04] MEDS: buPROPion XL 150 MG TAB.SR.24H PO SCH (09:14)
[2021-06-04] MEDS: CARBAMAZEPINE 200 MG TABLET PO SCH ×3 (09:14→16:05)
[2021-06-04] MEDS: FERROUS GLUCONATE 324 MG TABLET PO SCH (09:19)
--- NOTE | 2021-06-04 09:40 | NUR ---
[facility]RIS SNF Referral: CHRIS faxed patient's referral packet to [facility] (fax: [phone]) for review and possible placement attention to Suzanne. Addendum: 06/05/21 at 0939 by VANESSA PLAZA Per Suzanne they cannot accept the patient at this time.
[2021-06-04] MEDS: ESTRADIOL 1 MG TABLET PO SCH (13:10)
[2021-06-04 16:00] VITALS: BP 112/52
--- NOTE | 2021-06-04 16:05 | NUR ---
NURSE CARE Medicated with Ativan x 2, at 0919 and 1605. VSS. Afeb. No c/o pain or discomfort. Estriol mhas been started and due daily.
[2021-06-04] MEDS: MONTELUKAST SODIUM 10 MG TABLET PO SCH (17:11)
--- NOTE | 2021-06-04 19:25 | NUR ---
NURSE REPORT Report given to night nurse Sara to assume care of patient. Kardex given. VSS. Afeb. Ativan 1 mg given x 2 at 0919 and 1605. Estriol 2mg has been ordered for menopause and dose given today.
[2021-06-04 20:15] VITALS: BP 121/69
[2021-06-04] MEDS ORDERED: TRAZODONE 50 MG TABLET PO SCH (21:00)
[2021-06-04] MEDS ORDERED: ATORVASTATIN 40 MG TABLET PO SCH (21:00)
[2021-06-05] MEDS: ALBUTEROL SULFATE 2.5 MG/3 ML NEBU NEB PRN ×2 (04:47→13:11)
[2021-06-05] MEDS: IPRATROPIUM BROMIDE 0.5 MG/2.5 ML NEBU NEB PRN ×2 (04:47→13:11)
[2021-06-05] MEDS: PANTOPRAZOLE SODIUM 40 MG TABLET.DR PO SCH (07:00)
[2021-06-05 07:30] VITALS: BP 117/83
[2021-06-05] MEDS: buPROPion XL 150 MG TAB.SR.24H PO SCH (08:12)
[2021-06-05] MEDS: ESTRADIOL 1 MG TABLET PO SCH (08:12)
[2021-06-05] MEDS: CARBAMAZEPINE 200 MG TABLET PO SCH ×2 (08:12→12:23)
[2021-06-05] MEDS: ZIPRASIDONE 20 MG CAPSULE PO SCH (08:12)
[2021-06-05] MEDS: FERROUS GLUCONATE 324 MG TABLET PO SCH (08:15)
[2021-06-05] MEDS: DOCUSATE SODIUM 100 MG CAPSULE PO SCH (08:16)
--- NOTE | 2021-06-05 09:40 | NUR ---
[facility]IS SNF Referral: CHRIS faxed patient's referral packet to [facility] (fax: [phone]) for review and possible placement attention to [facility]. Addendum: 06/05/21 at 1436 by VANESSA PLAZA [facility] stated they are unable to accept the patient at their facility.
--- NOTE | 2021-06-05 14:36 | NUR ---
[facility]IS SNF Referral: CHRIS faxed patient's referral packet to [facility] ( ) for review and possible placement attention to
--- NOTE | 2021-06-05 14:49 | NUR ---
PT IS ON A VOLUNTARY BASIS. STATES SHE WANTS TO BE DISCHARGED "IMMEDIATELY". PT IS AOX4, EASILY IRRITABLE AND LABILE. PT ABLE TO VERBALIZE ALL NEEDS. DENIES PAIN OR DISCOMFORT. DENIES SUICIDAL AND HOMICIDAL IDEATIONS. STATES SHE IS OK SIGNING AGAINST MEDICAL ADVICE. RISKS AND BENEFITS EXPLAINED. DR ROCHE IS CALLED AND INFORMED. INFORMED PT THAT SHE WILL LEAVE WITH NO LOG MANAGER PROVIDED RESOURCES OR PRESCRIPTIONS TO MEDICATIONS. PT STATES SHE WILL CALL A TAXI TO [place] WHERE SHE PREFERS TO BE IN. ALL BELONGINGS GIVEN TO PT. AMA PAPERWORK IS SIGNED.
--- NOTE | 2021-06-05 15:27 | NUR ---
PT LEFT UNIT ACCOMPANIED BY CLAIM ANALYST TO OUTSIDE OF HOSPITAL WITHOUT INCIDENT. PT LEFT WITH ALL NOTED BELONGINGS, PERSONAL MEDICATIONS, AND VALUABLES.
--- NOTE | 2021-06-05 15:42 | NUR ---
SW Discharge Note: Patient is choosing to be discharged AMA to an unknown location in [facility]. Patient states she is very familiar with the area and would like to return there. Patient states she will provide for her own transportation via taxi. Patient has refused all possible group home facility placements this social work program coordinator has offered her and is choosing to be discharged to herself. Patient refused to go into [facility] the day of her admission to [facility] as well. Patient is alert and oriented x4 and is aware and agreeable with discharge plans. Patient denies suicidal or homicidal ideation. Patient presents with euthymic mood and congruent affect. Patients friend, Freda ([phone]) is aware of patients discharge plan. SW provided patient with a copy of the [facility] homeless directory which provides information on locations for hot meals, sack lunches, food pantries, and showers. SW provided a list of mental health clinics: [facility] [address] [place] [address], ; [facility] [address] [place] [address], ; [facility] [address] [place] [address], ; a list of medical clinics: [facility] [address], [facility], ; [facility] [address], [address], [place] [address]; [facility] [address] [facility] [address], ; and a list of substance abuse programs: [facility] ; [facility] ; [facility] ; [facility] ; [facility] ; [facility] [phone]; [facility] [phone]. Patient signed the homeless waiver form and a copy was placed in the chart.
== END 2021-06-05 15:00 | disposition left against medical advice (07) | DRG 885 ==
LOC: GPS 23:14
PROVIDERS: ADMIT Psychiatry & Neurology Psychiatry; ATTEND Nurse Practitioner Family
DX: F25.9 Schizoaffective disorder, unspecified (principal); J44.9 Chronic obstructive pulmonary disease, unspecified; F43.10 Post-traumatic stress disorder, unspecified; E78.5 Hyperlipidemia, unspecified; Z59.0 Homelessness; Z83.3 Family history of diabetes mellitus; Z87.891 Personal history of nicotine dependence; F41.9 Anxiety disorder, unspecified
CPT/HCPCS: 36415; 94640; 94664; J3590